=== PATIENT | female | born 2000 | race Caucasian/White ===

== ENCOUNTER 2023-03-14 18:54 | Emergency (ER) | payer OTHER, SELFPAY ==
--- NOTE | ~2023-03-14 | CT_ITS ---
EXAMINATION: CT ABDOMEN AND PELVIS WITH CONTRAST CLINICAL INFORMATION: Right lower quadrant pain. COMPARISON: None available. TECHNIQUE: Multidetector volumetric images were obtained from the superior aspect of the liver through the pubic symphysis following administration 85 mL of Omnipaque 350 intravenous contrast. Sagittal and coronal reformatted images were obtained on the technologist's workstation. Oral contrast: No This CT examination was performed using dose optimization techniques as appropriate, variously including the following: *Automated exposure control *Adjustment of mA and/or kV according to patient size (this includes techniques or standardized protocols for targeted exams where dose is matched to indication/reason for exam; i.e. extremities or head) *Use of iterative reconstruction technique DLP: 97 mGy-cm FINDINGS: LUNG BASES: The visualized lung bases are unremarkable. LIVER, GALLBLADDER, AND BILIARY TREE: The liver is normal in size, shape, and attenuation. No focal hepatic lesion or biliary ductal dilatation is present. The gallbladder is unremarkable with no evidence of radiopaque gallstones, gallbladder wall thickening, or obvious pericholecystic inflammatory changes. PANCREAS: Unremarkable. SPLEEN: Unremarkable. ADRENAL GLANDS: Unremarkable. KIDNEYS AND URETERS: The kidneys are normal in size, shape, and attenuation. No hydronephrosis, hydroureter, or calculi seen. No perinephric stranding. BLADDER: Unremarkable. GASTROINTESTINAL TRACT: The small and large bowel are unremarkable. No obstruction, free intraperitoneal air or abscess is seen. There is no focal bowel wall thickening. No diverticulosis or diverticulitis is seen. The vermiform appendix appears normal. ABDOMINAL WALL: No significant hernia is appreciated. LYMPH NODES: Normal. VASCULAR: Unremarkable. PELVIC VISCERA: The uterus and adnexa are unremarkable. There is a small amount of nonspecific free fluid in the cul-de-sac. OSSEOUS STRUCTURES: Unremarkable. CT/CT abdomen pelvis w IV con IMPRESSION: 1. No bowel obstruction, free intraperitoneal air or abscess seen. There is no appendicitis or diverticulitis. 2. No urinary calculus or obstruction is seen. 3. There is no abdominopelvic mass or lymphadenopathy. 4. There is a small amount of nonspecific free fluid in the cul-de-sac. 5. Osseous structures are unremarkable. Fleischner guidelines were followed.
[2023-03-14 19:26] VITALS: BP 118/66; PULSE 100; RESP 18; TEMP 37.2; O2SAT 100; BMI 21.3
--- NOTE | 2023-03-14 19:28 | ED_ITS ---
HPI - General Adult General Chief complaint: Abdominal Pain Stated complaint: Abd pain, nausea, vomiting Time Seen by Provider: 03/14/23 20:18 Source: patient Mode of arrival: ambulatory Limitations: no limitations History of Present Illness HPI narrative: Patient is a 22-year-old female who presents emergency department for evaluation of nausea, fatigue, loss of appetite. She reports an episode of emesis last night bilious in nature with a fever and chills. Today she is experiencing lower abdominal pain predominantly to her right side, she expresses a personal concern for appendicitis. She does report approximately 1 week ago she was having viral type symptoms with sore throat cough and body aches which have overall improved, she denies ever having tested for COVID-19/influenza at that time. She denies any known sick contacts. She denies chest pain, shortness of breath, diarrhea, constipation, hematochezia, melena, dysuria, urinary frequency, hematuria, possibility of , recent unintentional weight loss, history of malignancy. Related Data Previous Rx's Medication Instructions Recorded ondansetron 4 mg disintegrating 4 mg PO Q8H PRN nausea and 03/14/23 tablet vomiting #20 tabs Allergies Allergy/AdvReac Type Severity Reaction Status Date / Time No Known Allergies Allergy Verified 03/14/23 19:30 Review of Systems 2 Review of Systems: Yes all other systems are reviewed and are negative PMFSH Past Medical History Attestation statement: The following information was validated with the patient. Source: old records reviewed Social History Social History Advance Directives: No Advance Directives Information Provided: No Physical Exam ED Vital Signs: Vital Signs - 24 hr 03/14/23 19:26 03/14/23 20:23 Temperature 98.9 F 98 F Pulse Rate 100 100 Respiratory Rate 18 18 Blood Pressure 118/66 120/71 Pulse Oximetry 100 100 Oxygen Delivery Method Room Air Room Air BMI result Body Mass Index 21.3 Appearance: Alert.?Oriented to person, place and time. No acute distress.?Normal affect. Eyes: Pupils equal, round and reactive to light.? ENT: Pharynx normal.?? Neck: Normal inspection.? Neck supple.?? CVS: Heart sounds normal. Normal heart rate and rhythm.? Pulses normal.?? Respiratory: No respiratory distress.? Lung sounds clear to auscultation bilaterally?? Abdomen: Soft diffuse lower abdominal tenderness upon palpation, no rigidity, no guarding, no rebound tenderness. Normoactive bowel sounds. No pulsatile mass.?? Skin: Skin warm and dry.? Normal skin color.? Extremities: No lower extremity edema.? No calf ttp? Neuro: Moves all extremities spontaneously. Sensation intact bilaterally. CN II- XII intact. No focal neuro deficits. Ambulates with normal steady gait. Course Course Course Narrative: RME- 22-year-old female presents for evaluation of lower abdominal pain fevers, nausea. Plan for labs, UA, , viral swabs Reevaluation(s) Reevaluation #1: Patient tested positive for COVID-19. Attempted to re-evaluate and discharge the patient is this likely explains her symptoms. She states that she had symptoms of COVID-19 with sore throat, cough, body aches 1 week ago and never tested. She is concerned that her illness today is not related to COVID-19 and prefer to wait for a more thorough evaluation. She is concerned about appendicitis. Time: 20:22 Medications Administered Generic Name Dose Route Start Last Admin Trade Name Freq PRN Reason Stop Dose Admin Sodium Chloride 1,000 mls @ 999 mls/hr 03/14/23 22:00 03/14/23 22:01 Ns IV 03/14/23 23:00 999 mls/hr .Q1H1M TORIN Administration Discontinued Medications Generic Name Dose Route Start Last Admin Trade Name Freq PRN Reason Stop Dose Admin Iohexol 85 ml 03/14/23 21:16 03/14/23 21:16 Iohexol 350 Mg/Ml 100 Ml Infus..Btl IV 03/14/23 21:17 85 ml ONCE ONE Administration Ketorolac Tromethamine 30 mg 03/14/23 21:49 03/14/23 22:01 Ketorolac Tromethamine 30 Mg/Ml Vial IVPUSH 03/14/23 21:50 30 mg ONCE ONE Administration Ondansetron HCl 4 mg 03/14/23 21:49 03/14/23 22:01 Ondansetron Hcl 4 Mg/2 Ml Vial IVPUSH 03/14/23 21:50 4 mg ONCE ONE Administration Medical Decision Making Medical Decision Making MDM Narrative: Patient is a 22-year-old female who presents emergency department for evaluation of nausea fatigue decreased appetite lower abdominal pain as per HPI. On examination, she has mild tenderness upon palpation diffusely throughout the lower abdomen, not appear consistent with acute abdomen. Reviewed labs obtained promote she was in the waiting room, CBC is without leukocytosis or anemia. CMP is unremarkable no electrolyte derangement or CHELO, lipase within normal limits, do not suspect hepatic/biliary etiology. HCG is negative. Urinalysis is without evidence of infection or microscopic hematuria. Influenza test is negative. COVID-19 testing is positive at this time. CT of the abdomen and pelvis was ordered which is without acute pathology to suggest a cause for her symptoms. COVID-19 most likely etiology for viral syndrome. Discussed conservative treatment, worrisome signs and symptoms that would warrant re- evaluation in the emergency department. All questions answered. Stable for discharge. Differential Diagnosis Differential Diagnoses: The differential diagnosis associated with the presentation includes (See narrative above) Admission/Observation Consideration of admission/observation: Escalation of care including admission/observation considered (See narrative above and course narrative for further detail) Lab Data MDM Lab Attestation statement: I reviewed the patient's lab results. (See narrative above) 03/14/23 19:45 03/14/23 19:45 Labs: Lab Results 03/14/23 Range/Units 19:45 WBC 5.9 (4.8-10.8) X10*3/uL RBC 4.12 L (4.20-5.50) X10*6/uL Hgb 12.3 (12.0-16.0) g/dl Hct 37.5 (37.0-47.0) % MCV 91.0 (80.0-98.0) fL MCH 29.9 (27.0-33.0) pg MCHC 32.8 (31.0-35.0) g/dl RDW 13.2 (11.0-16.0) % Plt Count 393 (160-400) X10*3/uL MPV 8.9 L (9.4-12.3) fL Immature Gran % (Auto) 0.5 H (0.0-0.4) % Neut % (Auto) 82.4 H (45-73) % Lymph % (Auto) 10.0 L (20-40) % [place] % (Auto) 6.9 (2-11) % Eos % (Auto) 0.0 (0-4) % Baso % (Auto) 0.2 (0-2) % Lymph # (Auto) 0.6 L (1.2-4.9) X10*3/uL [place] # (Auto) 0.4 (0.1-1.2) X10*3/uL Eos # (Auto) 0.0 (0.0-0.4) X10*3/uL Baso # (Auto) 0.0 (0.0-0.2) X10*3/uL Abs Immat Gran (auto) 0.03 (0.00-0.03) X10*3/uL Absolute Neuts (auto) 4.9 (2.0-8.3) x10*3/uL Absolute Nucleated RBC 0.000 (0.0-0.012) X10*3/uL Nucleated RBC % (auto) 0.0 (0.0-0.2) /100WBC Sodium 136 (135-145) mmol/L Potassium 4.0 (3.3-5.1) mmol/L Chloride 104 (96-108) mmol/L Carbon Dioxide 22 (22-29) mmol/L Anion Gap 14 (12-20) BUN 15 (9-16) mg/dL Creatinine 0.87 (0.5-1.4) mg/dL Estim Creat Clear Calc 92.0 Estimated GFR > 60 Random Glucose 108 (60-115) mg/dL Calcium 9.5 (8.4-10.2) mg/dL Total Bilirubin 0.5 (0.0-1.0) mg/dL AST 21 (5-31) U/L ALT 23 (0-31) U/L Alkaline Phosphatase 57 (39-117) U/L Total Protein 7.4 (6.5-8.0) g/dL Albumin 4.1 (3.5-5.0) g/dL Lipase 11 (8-78) U/L Beta HCG, Quant < 2 mIU/mL Urine Color Yellow Urine Appearance Clear Urine pH 6.5 (5.0-9.0) Ur Specific [place] 1.020 (1.005-1.025) Urine Protein Negative (Neg-Trace) mg/dL Urine Glucose (UA) Negative (Negative) mg/dL Urine Ketones Negative (Negative) mg/dL Urine Blood Negative (Negative) Urine Nitrite Negative (Negative) Ur Leukocyte Esterase Small (1+) H (Negative) Urine RBC 0-2 (0-2) /HPF Urine WBC 0-5 (0-5) /HPF Ur Squamous Epith Cells 11-20 (0-2) /HPF Urine Bacteria None Seen (None Seen) Hyaline Casts 0-2 (0-2) /LPF COVID-19 (MACY) Positive A (Negative) COVID-19 Clin Com See Note Influenza Type A (JOSE) Negative (Negative) Influenza Type B (JOSE) Negative (Negative) Influenza A & B Note See Note Independent Interpretation I performed an independent interpretation of an: CT Scan Radiology Impression Discussion of test interpretation with radiology: I have reviewed the radiologist's reading. Radiologist Impression: CT/CT abdomen pelvis w IV con IMPRESSION: 1. No bowel obstruction, free intraperitoneal air or abscess seen. There is no appendicitis or diverticulitis. 2. No urinary calculus or obstruction is seen. 3. There is no abdominopelvic mass or lymphadenopathy. 4. There is a small amount of nonspecific free fluid in the cul-de-sac. 5. Osseous structures are unremarkable. Independent Historian Clinical information obtained from an independent historian. History obtained from or confirmed by: Parent External Record Review External record reviewed: Outpatient record Prescription Management I considered prescription management with: Antiviral (Outside of window for Paxlovid) Discharge Plan Discharge Clinical Impression: COVID-19 Patient Disposition: Home, Self-Care Additional Instructions: The CT scan of your abdomen and pelvis is normal, there is no evidence of constipation, appendicitis, kidney stones, or abnormal findings to suggest an alternative cause for your pain. Your symptoms are most consistent with COVID-19 infection. Be sure to rest, stay well hydrated drinking plenty of fluids, eat small frequent meals. Tylenol/ibuprofen can be used as needed for fever/pain. [id number] cold medications may be helpful as well for symptoms. You may return to the emergency department with any new or worsening symptoms or concerns. Follow-up with your primary care provider as needed. Should remain out of school/ work until symptoms have resolved and have been without a fever for 24 hours without the use of Tylenol or ibuprofen. Prescriptions: New ondansetron 4 mg tablet,disintegrating 4 mg PO Q8H PRN (Reason: nausea and vomiting) Qty: 20 0RF Referrals: Physician,Unknown J [Primary Care Provider] - Stand Alone Forms: Work/School Release
--- NOTE | 2023-03-14 19:48 | MHC.EDTECH ---
Patient brought into triage area,labs,covid,flu,and urine obtained and sent to lab.
[2023-03-14 19:50] LABS: MANUAL DIFF FLAG NO
[2023-03-14 19:53] LABS: Appearance Urine Clear; Color Urine Yellow; Glucose Urine UA Negative (Negative); Leukocyte Esterase Urine Small (1+) (Negative); Nitrite Urine Negative (Negative); PH 6.5 (5.0-9.0); UMIC TRIGGER UACC YES; Urine Blood Negative (Negative); Urine Ketones Negative (Negative); Urine Protein Negative (Neg-Trace)
[2023-03-14 19:55] LABS: Basophils Percent Auto 0.2 % (0-2); Hematocrit 37.5 % (37.0-47.0); Hemoglobin 12.3 g/dl (12.0-16.0); Imm Gran Abs Auto 0.03 X10*3/uL (0.00-0.03); Imm Gran Pct Auto 0.5 % (0.0-0.4); Lymphocytes Absolute Auto 0.6 X10*3/uL (1.2-4.9); Mean Corpuscular HGB Conc 32.8 g/dl (31.0-35.0); Mean Corpuscular Hemoglobin 29.9 pg (27.0-33.0); Mean Platelet Volume 8.9 fL (9.4-12.3); Monocytes Absolute Auto 0.4 X10*3/uL (0.1-1.2); Monocytes Percent Auto 6.9 % (2-11); Neutrophils Absolute Auto 4.9 x10*3/uL (2.0-8.3); Neutrophils Percent Auto 82.4 % (45-73); Platelet Count 393 X10*3/uL (160-400); Red Blood Count 4.12 X10*6/uL (4.20-5.50); Red Cell Distribution Width 13.2 % (11.0-16.0); White Blood Count 5.9 X10*3/uL (4.8-10.8)
[2023-03-14 20:01] LABS: COVID-19 Test Positive (Negative); IDNOW Serial# 08D9AD1C
[2023-03-14 20:04] LABS: Bacteria Urine None Seen (None Seen); Hyaline Casts Urine 0-2 /LPF (0-2); RBC Urine 0-2 /HPF (0-2); UACC Culture Trigger YES; WBC Urine 0-5 /HPF (0-5)
[2023-03-14 20:09] LABS: IDNOW Serial# 152EDE1D; Influenza A Negative (Negative); Influenza B2 Negative (Negative)
[2023-03-14 20:13] LABS: Alanine Aminotransferase 23 U/L (0-31); Albumin Level 4.1 g/dL (3.5-5.0); Alkaline Phosphatase 57 U/L (39-117); Anion Gap 14 (12-20); Aspartate Amino Transferase 21 U/L (5-31); Bilirubin Total 0.5 mg/dL (0.0-1.0); Blood Urea Nitrogen 15 mg/dL (9-16); Calcium 9.5 mg/dL (8.4-10.2); Carbon Dioxide 22 mmol/L (22-29); Chloride 104 mmol/L (96-108); Estimated Glomerular Filt Rate > 60; Glucose Random 108 mg/dL (60-115); HCG Quantitative < 2 mIU/mL; Lipase 11 U/L (8-78); Sodium 136 mmol/L (135-145); Total Protein 7.4 g/dL (6.5-8.0)
[2023-03-14 20:23] VITALS: BP 120/71; PULSE 100; RESP 18; TEMP 36.6; O2SAT 100
[2023-03-14] MEDS: iohexoL 350 MG/ML 100 ML INFUS..BTL 85 ML IV (21:16)
[2023-03-14] MEDS: ondansetron HCL 4 MG/2 ML VIAL IVPUSH (22:01)
[2023-03-14] MEDS: Ketorolac Tromethamine 30 MG/ML VIAL IVPUSH (22:01)
[2023-03-14] MEDS: 0.9 % Sodium Chloride 1,000 ML 999 ML IV (22:01)
== END 2023-03-14 23:33 | disposition home or self-care (01) ==
PROVIDERS: Physician Assistant; Emergency Provider Emergency Medicine
DX: U07.1 COVID-19 (principal); R10.11 Right upper quadrant pain; R11.2 Nausea with vomiting, unspecified; Z79.899 Other long term (current) drug therapy
CPT/HCPCS: 74177; 80053; 81001; 83690; 84702; 85025; 87086; 87502; 87635; 96374; 96375; 99284; J1885; J2405; Q9967